=== PATIENT | female | born 1980 | race Caucasian/White ===

== ENCOUNTER 2019-10-27 11:55 | Emergency (ER) | payer SELFPAY ==
[~2019-10-27] VITALS: Ht 165.1 cm; Wt 72.6 kg
--- NOTE | 2019-10-27 12:14 | NUR ---
Patient alert to name only pos. ETOH patient run to the back door emergency exit code gupta assited to Bed 15
--- NOTE | 2019-10-27 12:31 | NUR ---
Noted patient has bruise to left knee and her abomen she stated she homeless and leave closer was andre by police
[2019-10-27] MEDS ORDERED: LORAZEPAM INJ 2 MG/ML VIAL ONE (12:49)
[2019-10-27] MEDS ORDERED: LORAZEPAM INJ 2 MG/ML VIAL IM ONE (13:00)
--- NOTE | 2019-10-27 13:09 | NUR ---
Patient yelling trying getting out of bed cursing staff verbally abusive ,keep patient calm medication given keep patient close monitor
--- NOTE | 2019-10-27 13:38 | NUR ---
Noted no further yelling @ this time .
--- NOTE | 2019-10-27 15:00 | NUR ---
Patient awake alert noted able to ambulated to bathroom and hallway she ate 99 % of her snacks no nause and vomit patient remain talkative she denies SI
--- NOTE | 2019-10-27 16:44 | NUR ---
Patient awake alert orreinted road test passed able to ambulated to HW and bathroom patient denies SI she delined detention stated going back to previous living arrangement given snack appreciated no nausea and vomiting she agrees to follow up PMD in AM
[2019-10-27 16:47] VITALS: BP 134/78
--- NOTE | 2019-10-27 16:49 | NUR ---
Patient declined jail and signed form refusal
== END 2019-10-27 16:49 | disposition home or self-care (01) ==
LOC: ER 12:02
DX: F10.129 Alcohol abuse with intoxication, unspecified (principal); Z59.0 Homelessness; Y90.9 Presence of alcohol in blood, level not specified
CPT/HCPCS: 96372; 99283; J2060